=== PATIENT | male | born 1955 | race Caucasian/White ===

== ENCOUNTER 2023-04-30 08:57 | Outpatient (OUT) | payer OTHER, SELFPAY ==
[2023-04-30 09:28] LABS: Basophils Absolute Auto 0.1 10^3/uL (0.0-0.1); Basophils Percent Auto 0.7 % (0.2-2.0); Eosinophils Absolute Auto 0.1 10^3/uL (0.0-0.7); Eosinophils Percent Auto 1.2 % (0.9-7.0); Hematocrit 47.3 % (42.0-54.0); Hemoglobin 15.5 g/dL (14.0-18.0); Immature Granulocytes Abs Auto 0.03 10^3/uL (0.00-0.03); Immature Granulocytes Pct Auto 0.4 % (0.0-0.5); Lymphocytes Absolute Auto 2.6 10^3/uL (1.2-3.8); Lymphocytes Percent Auto 34.1 % (20.5-60.0); Mean Corpuscular HGB Conc 32.8 g/dL (29.9-35.2); Mean Corpuscular Hemoglobin 31.5 pg (25.9-34.0); Mean Corpuscular Volume 96.1 fL (80.0-94.0); Mean Platelet Volume 9.2 fL (9.5-13.5); Monocytes Absolute Auto 0.7 10^3/uL (0.3-0.8); Monocytes Percent Auto 9.4 % (1.7-12.0); Neutrophils Absolute Auto 4.1 10^3/uL (1.4-6.5); Neutrophils Percent Auto 54.2 % (43.0-75.0); Platelet Count 344 10^3/uL (150-450); Red Blood Count 4.92 10^6/uL (4.70-6.10); Red Cell Distribution Width 12.8 % (11.0-15.0); White Blood Count 7.5 10^3/uL (4.0-11.0)
[2023-04-30 09:45] LABS: Estimated Average Glucose 166 mg/dL; Glycohemoglobin A1C 7.4 % (4.5-6.2)
[2023-04-30 09:56] LABS: Alanine Aminotransferase 22 U/L (16-63); Albumin Globulin Ratio 1.1; Albumin Level 4.2 g/dL (3.4-5.0); Alkaline Phosphatase 78 U/L (46-116); Anion Gap 9.5; Aspartate Amino Transferase 13 U/L (15-37); BUN Creatinine Ratio 14.1; Bilirubin Direct 0.1 mg/dL (0.0-0.2); Bilirubin Total 0.4 mg/dL (0.2-1.0); Calcium 9.6 mg/dL (8.5-10.1); Carbon Dioxide 32.7 mmol/L (21.0-32.0); Chloride 95 mmol/L (98-107); Cholesterol 160 mg/dL (<=200); Estimated GFR (African America >60 (>=60); Estimated GFR (Non-African Ame >60 (>=60); Globulin 3.9 g/dL; Glucose 172 mg/dL (74-106); HDL Cholesterol 54 mg/dL (40-60); Potassium 4.2 mmol/L (3.5-5.1); Sodium 133 mmol/L (136-145); Thyroid Stimulating Hormone 1.068 uIU/mL (0.358-3.740); Total Protein 8.1 g/dL (6.4-8.2); Triglycerides 125 mg/dL (<=150)
[2023-04-30 10:19] LABS: Prostate Specific Antigen Scrn 0.62 ng/mL (<=4.00)
== END 2023-04-30 08:58 | disposition home or self-care (01) ==
LOC: LAB 09:04
PROVIDERS: PCP Family Medicine; Visit Provider Family Medicine
DX: E11.65 Type 2 diabetes mellitus with hyperglycemia (principal); I10 Essential (primary) hypertension; E55.9 Vitamin D deficiency, unspecified; Z79.899 Other long term (current) drug therapy; E78.5 Hyperlipidemia, unspecified; Z12.5 Encounter for screening for malignant neoplasm of prostate; E66.9 Obesity, unspecified
CPT/HCPCS: 36415; 80048; 80061; 80076; 82043; 82306; 83036; 84443; 85025; G0103

== ENCOUNTER 2023-09-23 09:35 | Outpatient (OUT) | payer OTHER, SELFPAY ==
[2023-09-23 10:31] LABS: Estimated Average Glucose 177 mg/dL; Glycohemoglobin A1C 7.8 % (4.5-6.2)
== END 2023-09-23 09:36 | disposition home or self-care (01) ==
LOC: LAB 09:36
PROVIDERS: PCP Family Medicine; Visit Provider Family Medicine
DX: E11.65 Type 2 diabetes mellitus with hyperglycemia (principal)
CPT/HCPCS: 36415; 83036

== ENCOUNTER 2024-01-07 13:42 | Outpatient (OUT) | payer OTHER, SELFPAY | END 2024-01-07 13:43 | disposition home or self-care (01) | LOC: PST 13:42 | PROVIDERS: PCP Family Medicine; Visit Provider Surgery | DX: Z01.818 Encounter for other preprocedural examination (principal); Z12.11 Encounter for screening for malignant neoplasm of colon ==

== ENCOUNTER 2024-01-12 07:36 | Day surgery (SDC) | payer OTHER, SELFPAY ==
[2024-01-12 07:40] VITALS: BP 143/108; PULSE 107; TEMP 36.3; O2SAT 97; BMI 26.9
--- OUTSIDE RECORDS SUMMARY | 2024-01-12 07:40 | XMS_ITS | CCD ---
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 Phone MARIUM, DR MARIELA Chaudhari Primary Care Unavailable KATIE, DR ELY Henley Admitting Unavailabl e REINECK, DR ELY Henley Attending Unavailabl e REINECK, DR ELY Henley Consulting Unavailabl e FILIPPONE, EDISON Consulting Unavailable Garcia, Majo Consulting Unavailable MARIUM, DR MARIELA Chaudhari Admitting Unavailable NADISAIAS, DR MARIELA Chaudhari Attending Unavailable MARIUM, DR MARIELA Chaudhari Primary Care Unavailable NADISAIAS, DR MARIELA Chaudhari Consulting Unavailable MARIUM, DR MARIELA Chaudhari Primary Care Unavailable MIKA, DR HORN Admitting Unavailable HAY, DR HORN Attending Unavailable EDIN, DR JALEESA Ramos Consulting Unavailable MICHELLE ERWIN Consulting Unavailable Julito MOISE Attending Unavailable LAURI, SHIRA Garzon Attending Unavailab sandeep CAUSEY, MARIELA Attending Unavailable SAI, JEWELS Attending Unavailable Allergies Allergy Classification Reported Allergen(s) Allergy Type Date of Onset Reaction(s) Facility (2 sources) Codeine; Translations: [codeine] Drug Allergy 08-16-2015 [facility] Repository (2 sources) Penicillins; Translations: [penicillins] Drug allergy (disorder) 08-16-2015 [facility] Problems Problem Classification Problem Date Documented Da te Episodic/Chronic Abdominal pain (4 sources) Unspecified abdominal pain; Translations: [UNSPECIFIED ABDOMINAL PAIN] Onset: 06-19-2022 Episodic Calculus of urinary tract (1 source) Personal history of urinary calculi; Translations: [PERSONAL HISTORY OF URINARY CALCULI] Onset: 06-23-2022 Episodic Diabetes mellitus with complications (4 sources) Type 2 diabetes mellitus with hyperglycemia; Translations: [TYPE 2 DM W/HYPERGLYCEMIA] Onset: 12-24-2021 Chronic Other aftercare (1 source) Other dedicated intermodal truck driver (current) drug therapy; Translations: [OTH FCI CURRENT DRUG THERAPY] Onset: 07-01-2022 Episodic Other aftercare (1 source) termite exterminator helper (current) use of aspirin; Translations: [LOSS CONTROL CONSULTANT CURRENT USE OF ASPIRIN] Onset: 07-01-2022 Episodic Other aftercare (1 source) termite exterminator helper (current) use of oral hypoglycemic drugs; Translations: [LOSS CONTROL CONSULTANT USE ORAL HYPOGLYCEMIC DX] Onset: 07-01-2022 Episodic Other non-traumatic joint disorders (3 sources) Pain in left hip; Translations: [PAIN IN LEFT HIP] Onset: 06-29-2022 Episodic Skin and subcutaneous tissue infections (1 source) Cutaneous abscess of left lower limb; Translations: [CUTANEOUS ABSCESS LEFT LOWER LIMB] Onset: 07-01-2022 Episodic Substance-related disorders (1 source) Nicotine dependence, cigarettes, uncomplicated; Translations: [NICOTINE DEPEND CIGARETTES UNCOMP] Onset: 07-01-2022 Chronic Urinary tract infections (1 source) Urinary tract infection, site not specified; Translations: [UTI SITE NOT SPECIFIED] Onset: 06-23-2022 Episodic Results Test Name Value Interpretation Reference Range Facility CBC AUTO DIFFon 06-29-2022 BASO # 0.1 103/ul Normal 0.0-0.1 [facility] Comment on above: Performed By: #### C BC #### [facility] [address] [place] [address] Dr. Scarlet Palmer Basophils/100 WBC (Bld) 0.3 % Normal 0.2-2.0 [facility] Comment on above: Performed By: #### C BC #### [facility] [address] [place] [address] Dr. Scarlet Palmer EO # 0.1 103/ul Normal 0.0-0.7 [facility] Comment on above: Performed By: #### C BC #### [facility] [address] [place] [address] Dr. Scarlet Palmer Eosinophils/100 WBC (Bld) 0.4 % Critically low 0.9-7.0 [facility] Comment on above: Performed By: #### C BC #### [facility] [address] [place] [address] Dr. Scarlet Palmer Erythrocyte distribution width (RBC) [Ratio] 13.2 % Normal 11.0-15.0 [facility] Comment on above: Performed By: #### C BC #### [facility] [address] [address] [address] Scarlet Palmer Hematocrit (Bld) [Volume fraction] 39.4 % Critically low 42.0-54.0 [facility] Comment on above: Performed By: #### C BC #### [facility] [address] [address] [address] Scarlet Palmer Hemoglobin (Bld) [Mass/Vol] 13.2 g/dL Critically low 14.0-18.0 [facility] Comment on above: Performed By: #### C BC #### [facility] [address] [place] [address] Dr. Scarlet Palmer IG # 0.16 10e3/ul Critically high 0.00-0.03 [facility] Comment on above: Performed By: #### C BC #### [facility] [address] [place] [address] Dr. Scarlet Palmer IG % 1.1 % Critically high 0.0-0.5 [facility] Comment on above: Performed By: #### C BC #### [facility] [address] [place] [address] Dr. Scarlet Palmer LYMPH # 2.7 103/ul Normal 1.2-3.8 [facility] Comment on above: Performed By: #### C BC #### [facility] [address] [place] [address] Dr. Scarlet Palmer Lymphocytes/100 WBC (Bld) 18.2 % Critically low 20.5-60.0 [facility] Comment on above: Performed By: #### C BC #### [facility] [address] [place] [address] Dr. Scarlet Palmer MANUAL DIFF REQ NO Normal [facility] Comment on above: Performed By: #### C BC #### [facility] [address] [place] [address] Dr. Scarlet Palmer MCH (RBC) [Entitic mass] 31.4 pg Normal 25.9-34.0 [facility] Comment on above: Performed By: #### C BC #### [facility] [address] [address] [address] Scarlet Palmer MCHC (RBC) [Mass/Vol] 33.5 g/dL Normal 29.9-35.2 [facility] Comment on above: Performed By: #### C BC #### [facility] [address] [address] [address] Scarlet Palmer MCV (RBC) [Entitic vol] 93.6 fL Normal 80.0-94.0 [facility] Comment on above: Performed By: #### C BC #### [facility] [address] [address] [address] Scarlet Palmer MONO # 1.3 103/ul Critically high 0.3-0.8 [facility] Comment on above: Performed By: #### C BC #### [facility] [address] [place] [address] Dr. Scarlet Palmer Monocytes/100 WBC (Bld) 8.7 % Normal 1.7-12.0 [facility] Comment on above: Performed By: #### C BC #### [facility] [address] [place] [address] Dr. Scarlet Palmer NEUT # 10.7 103/ul Critically high 1.4-6.5 [facility] Comment on above: Performed By: #### C BC #### [facility] [address] [place] [address] Dr. Scarlet Palmer Neutrophils/100 WBC (Bld) 71.3 % Normal 43.0-75.0 [facility] Comment on above: Performed By: #### C BC #### [facility] [address] [place], [place] [id number] Dr. Scarlet Palmer Platelet mean volume (Bld) [Entitic vol] 9.6 fL Normal 9.5-13.5 [facility] Comment on above: Performed By: #### C BC #### [facility] [address] [place] [address] Dr. Scarlet Palmer PLT 719 103/ul Critically high 150-450 [facility] Comment on above: Performed By: #### C BC #### [facility] [address] [place], [place] [address] Dr. Scarlet Palmer RBC 4.21 106/ul Critically low 4.70-6.10 [facility] Comment on above: Performed By: #### C BC #### [facility] [address] [place], [place] [address] Dr. Scarlet Palmer WBC 15.0 103/ul Critically high 4.0-11.0 [facility] Comment on above: Performed By: #### C BC #### [facility] [address] [place], [place] [address] Dr. Scarlet Palmer CTA ABD CHULA WWO CON LE RUNO FFon 06-29-2022 CTA ABD CHULA WWO CON LE RUNOFF EXAMINATION: CTA ABD CHULA WWO CON LE RUNOFF , 06/29/2022 HISTORY: Pain in lower limb COMPARISON: CT scan of the abdomen and pelvis without contrast from 07/07/2022 TECHNIQUE: CT scan of the abdomen, pelvis and bilateral lower extremities performed following 100 mL of Omnipaque 350 intravenous iodine contrast with arterial protocol. Coronal, sagittal and 3-D constructions were performed. MIP (maximum intensity projection) images were performed. Dose reduction techniques were achieved by using automated exposure control and/or adjustment of mA and/or kV according to patient size and/or use of iterative reconstruction technique. FINDINGS: Vascular: The abdominal aorta shows mild to moderate diffuse atherosclerosis with ulcerated plaques in the distal segment and involving the bifurcation. Ulcerated plaques are seen in bilateral common iliac arteries, left more than right, with mild stranding on the left side. Bilateral external iliac arteries are patent without significant narrowing. Bilateral internal iliac arteries are patent with mild proximal stenosis. Mild enlargement of the para-aortic lymph nodes with enhancement. The celiac axis is patent without narrowing and contrast within the splenic artery, proper hepatic artery and the left gastric artery. The superior mesenteric artery is patent without narrowing. Replaced right hepatic artery arising from the proximal superior mesenteric artery. Inferior mesenteric artery is patent without narrowing. Bilateral renal arteries are patent with mild calcific plaques at the origin without narrowing. In the right lower extremity, the common femoral artery, profunda femoris artery and superficial femoral artery are patent without significant stenosis. Mild atherosclerosis in the distal right superficial femoral artery. Patent right popliteal artery and trifurcation. Distal tibial evaluation limited due to inadequate opacification. In the left lower extremity, the common femoral artery, profunda femoris artery and superficial femoral artery are patent. Mild narrowing of the distal left superficial femoral artery. Patent left popliteal artery and trifurcation with three-vessel tibial runoff. Nonvascular: Fluid collection with air lucencies is seen in the left iliopsoas region extending from the level of the upper acetabulum to the lesser trochanter. This measures approximately 15.5 cm in length and 4.5 x 5 cm in transverse dimensions. These findings are consistent with acute abscess. Enhancing small lymph nodes are seen along the left para-aortic, iliac and inguinal region. The liver shows mild steatosis without obvious focal lesion. Mild hepatomegaly measuring 23.5 cm in the superior-inferior dimension. The spleen, pancreas, gallbladder, bile ducts and bilateral adrenal glands are unremarkable. Multiple bilateral renal cortical cysts, the largest in the left kidney measuring 2.5 cm in size. No hydronephrosis or hydroureter. Urinary bladder is nondistended. Prostate gland is not enlarged. Unremarkable IVC. Sigmoid and left colonic diverticulosis without diverticulitis. Moderate stool in the colon. No bowel loop dilatation or bowel wall thickening. Unremarkable appendix. No free fluid in the peritoneal cavity. Scans through both lower extremities demonstrate no obvious knee joint effusion. No fluid in the popliteal fossa and the calf region. No focal aggressive bone lesion. IMPRESSION: 1. Mild to moderate atherosclerosis of the distal abdominal aorta and bifurcation with ulcerated plaques, left more than right. Differential diagnosis includes vasculitis. 2. Mild stranding along the left common iliac artery with enhancing lymph nodes along the left para-aortic, iliac and inguinal region. 3. Fluid collection in the distal left iliopsoas region with air bubbles, consistent with abscess formation. 4. Patent left femoropopliteal arterial system with three-vessel tibial runoff, without significant narrowing. 5. Patent right femoropopliteal arterial system. Patent proximal tibial arteries in the right calf, limited distally evaluation due to lack of full opacification. Recommend clinical correlation. 6. Mild hepatomegaly. 7. Sigmoid and left colonic diverticulosis without diverticulitis. Findings were discussed with Dr. Юлия Carpenter at 11:49 am on 06/29/2022. Electronically authenticated by: MAJO GARCIA Date: 2022-06-29 11:50 Normal [facility] ER URINE PROFILEon 3 Bilirubin Ql (U) MODERATE Abnormal NEGATIVE [facility] Comment on above: Performed By: #### U RCX #### [facility] [address] [address] [address] Scarlet Palmer Clarity (U) SL CLOUDY Abnormal CLEAR [facility] Comment on above: Performed By: #### U RCX #### [facility] [address] [place] [address] Dr. Scarlet Palmer Color (U) DK. ORANGE Abnormal YELLOW [facility] Comment on above: Performed By: #### U RCX #### [facility] [address] [address] [address] Scarlet Palmer ERUAHCherry A micrscopic examination will be performed if indicated. Normal [facility] Comment on above: Performed By: #### U RCX #### [facility] [address] [place] [address] Dr. Scarlet Palmer Glucose Ql (U) Negative Normal NEGATIVE [facility] Comment on above: Performed By: #### U RCX #### [facility] [address] [place] [address] Dr. Scarlet Palmer Hemoglobin Ql (U) TRACE-INTACT Abnormal NEGATIVE [facility] Comment on above: Performed By: #### U RCX #### [facility] [address] [place] [address] Dr. Scarlet Palmer Ketones Ql (U) TRACE Abnormal NEGATIVE [facility] Comment on above: Performed By: #### U RCX #### [facility] [address] [place] [address] Dr. Scarlet Palmer LEUKOCYTES Negative Normal NEGATIVE [facility] Comment on above: Performed By: #### U RCX #### [facility] [address] [address] [address] Scarlet Palmer Nitrite Ql (U) Negative Normal NEGATIVE [facility] Comment on above: Performed By: #### U RCX #### [facility] [address] [place] [address] Dr. Scarlet Palmer pH (U) 5.5 [pH] Normal 5-9 [facility] Comment on above: Performed By: #### U RCX #### [facility] [address] [place] [address] Dr. Scarlet Palmer Protein (U) [Mass/Vol] 100 mg/dL Abnormal NEGATIVE/ TRACE [facility] Comment on above: Performed By: #### U RCX #### [facility] [address] [place] [address] Dr. Scarlet Palmer SPEC GRAVITY 1.030 Abnormal 1.005-<=1.025 [facility] Comment on above: Performed By: #### U RCX #### [facility] [address] [place] [address] Dr. Scarlet Palmer UR MICRO IND INDICATED Normal [facility] Comment on above: Performed By: #### U RCX #### [facility] [address] [place] [address] Dr. Scarlet Palmer Urobilinogen Qn (U) 1.0 {Lorenzo'U}/dL Normal 0.2 - 1. 0 [facility] Comment on above: Performed By: #### U RCX #### [facility] [address] [place] [address] Dr. Scarlet Palmer PROF CHEM 8 (BAS METB)on Anion gap [Moles/Vol] 10.4 mmol/L Normal [facility] Comment on above: Performed By: #### B MP #### [facility] [address] [place] [address] Dr. Scarlet Palmer Calcium [Mass/Vol] 9.1 mg/dL Normal 8.5-10.1 [facility] Comment on above: Performed By: #### B MP #### [facility] [address] [place] [address] Dr. Scarlet Palmer Chloride [Moles/Vol] 97 mmol/L Critically low 98-107 [facility] Comment on above: Performed By: #### B MP #### [facility] [address] [place] [address] Dr. Scarlet Palmer CO2 [Moles/Vol] 31.2 mmol/L Normal 21.0-32.0 [facility] Comment on above: Performed By: #### B MP #### [facility] [address] [address] [address] Scarlet Palmer Creatinine [Mass/Vol] 0.79 mg/dL Normal 0.70-1.30 [facility] Comment on above: Performed By: #### B MP #### [facility] [address] [address] [address] Scarlet Palmer EGFR-AF GRENADIAN >60 Normal >=60 [facility] Comment on above: Performed By: #### B MP #### [facility] [address] [address] [address] Scarlet Palmer EGFR-NON AF GRENADIAN >60 Normal >=60 [facility] Comment on above: Performed By: #### B MP #### [facility] [address] [address] [address] Scarlet Palmer Glucose [Mass/Vol] 225 mg/dL Critically high 74-106 [facility] Comment on above: Performed By: #### B MP #### [facility] [address] [place] [address] Dr. Scarlet Palmer Potassium [Moles/Vol] 3.6 mmol/L Normal 3.5-5.1 [facility] Comment on above: Performed By: #### B MP #### [facility] [address] [place] [address] Dr. Scarlet Palmer Sodium [Moles/Vol] 135 mmol/L Critically low 136-145 [facility] Comment on above: Performed By: #### B MP #### [facility] [address] [place] [address] Dr. Scarlet Palmer Urea nitrogen [Mass/Vol] 8.0 mg/dL Normal 7.0-18.0 [facility] Comment on above: Performed By: #### B MP #### [facility] [address] [place] [address] Dr. Scarlet Palmer Urea nitrogen/Creatinine [Mass ratio] 10.1 mg/mg Normal [facility] Comment on above: Performed By: #### B MP #### [facility] [address] [address] [address] Scarlet Palmer URINE MICROSCOPIC ONLYon BACTERIA NONE SEEN Normal NONE SEEN [facility] Comment on above: Performed By: #### U RCX #### [facility] [address] [place] [address] Dr. Scarlet Palmer Bacteria identified Cx Nom (U) NOT INDICATED Normal [facility] Comment on above: Performed By: #### U RCX #### [facility] [address] [place] [address] Dr. Scarlet Palmer CAST SEEN Abnormal NONE SEEN [facility] Comment on above: Performed By: #### U RCX #### [facility] [address] [place] [address] Dr. Scarlet Palmer Crystals LM Nom (Urine sed) NONE SEEN Normal NONE SEEN [facility] Comment on above: Performed By: #### U RCX #### [facility] [address] [place] [address] Dr. Scarlet Palmer Epithelial cells LM Ql (Urine sed) NONE SEEN Normal NONE SEEN /RARE [facility] Comment on above: Performed By: #### U RCX #### [facility] [address] [place] [address] Dr. Scarlet Palmer MUCOUS MODERATE Abnormal NONE SEEN [facility] Comment on above: Performed By: #### U RCX #### [facility] [address] [place] [address] Dr. Scarlet Palmer RBC NONE SEEN Abnormal 0-2 [facility] Comment on above: Performed By: #### U RCX #### [facility] [address] [place] [address] Dr. Scarlet Palmer WBC NONE SEEN Normal NONE SEEN [facility] Comment on above: Performed By: #### U RCX #### [facility] [address] [place] [address] Dr. Scarlet Palmer XR HIP LT 2 3V W PELVISon XR HIP LT 2 3V W PELVIS EXAM: XR HIP LT 2 3V W PELVIS HISTORY: Pain COMPARISON: None FINDINGS: There are mild to moderate degenerative changes with joint space narrowing, subchondral sclerosis and osteophyte formation. There is no evidence of an acute fracture, subluxation or bony destruction. IMPRESSION: Mild to moderate degenerative joint disease. Electronically authenticated by: EDISON MONTANO Date: 2022-06-29 10:00 Normal [facility] CBC W MANUAL DIFFon 06-19-19 23 ATYPICAL LYMPH # Normal [facility] Comment on above: Performed By: #### C BRYCE #### [facility] [address] [place] [address] Dr. Scarlet Palmer ATYPICAL LYMPH % Normal [facility] Comment on above: Performed By: #### C BRYCE #### [facility] [address] [place] [address] Dr. Scarlet Palmer BAND # Normal 0.0-0.3 [facility] Comment on above: Performed By: #### C BRYCE #### [facility] [address] [place] [address] Dr. Scarlet Palmer BAND % Normal 0-5 [facility] Comment on above: Performed By: #### C BRYCE #### [facility] [address] [place] [address] Dr. Scarlet Palmer BASOM # 0.00 103/ul Normal 0.00-0.10 [facility] Comment on above: Performed By: #### C BRYEC #### [facility] [address] [place] [address] Dr. Scarlet Palmer BASOM % 0.0 % Critically low 0.2-2.0 [facility] Comment on above: Performed By: #### C BRYCE #### [facility] [address] [place] [address] Dr. Scarlet Palmer BLAST # Normal [facility] Comment on above: Performed By: #### C BRYCE #### [facility] [address] [place] [address] Dr. Scarlet Palmer BLAST % Normal [facility] Comment on above: Performed By: #### C BRYCE #### [facility] [address] [place] [address] Dr. Scarlet Palmer CORRECTED WBC Normal 4.0-11.0 [facility] Comment on above: Performed By: #### C BCMOSES #### [facility] [address] [address] [address] Scarlet Palmer EOS # 0.00 103/ul Normal 0.00-0.70 [facility] Comment on above: Performed By: #### C BRYCE #### [facility] [address] [address] [address] Scarlet Palmer EOS% 0.0 % Critically low 0.9-7.0 [facility] Comment on above: Performed By: #### C BCMOSES #### [facility] [address] [address] [address] Scarlet Palmer HCT 33.3 % Critically low 42.0-54.0 [facility] Comment on above: Performed By: #### C BRYCE #### [facility] [address] [address] [address] Scarlet Palmer HGB 11.1 g/dl Critically low 14.0-18.0 [facility] Comment on above: Performed By: #### C BRYCE #### [facility] [address] [address] [address] Scarlet Palmer LYMPHM # 0.52 103/ul Critically low 1.20-3.80 [facility] Comment on above: Performed By: #### C BRYCE #### [facility] [address] [address] [address] Scarlet Palmer LYMPHM% 12.0 % Critically low 20.5-60.0 [facility] Comment on above: Performed By: #### C BRYCE #### [facility] [address] [address] [address] Scarlet Palmer MCH 30.4 pg Normal 25.9-34.0 [facility] Comment on above: Performed By: #### C BRYCE #### [facility] [address] [address] [address] Scarlet Palmer MCHC 33.3 g/dl Normal 29.9-35.2 [facility] Comment on above: Performed By: #### C BRYCE #### [facility] [address] [address] [address] Scarlet Palmer MCV 91.2 fL Normal 80.0-94.0 [facility] Comment on above: Performed By: #### C BCMAN #### [facility] [address] [place] [address] Dr. Scarlet Palmer METAMYELOCYTE # Normal [facility] Comment on above: Performed By: #### C BCMAN #### [facility] [address] [place] [address] Dr. Scarlet Palmer METAMYELOCYTE % Normal [facility] Comment on above: Performed By: #### C BCMAN #### [facility] [address] [place] [address] Dr. Scarlet Palmer MONOM# 0.60 103/ul Normal 0.30-0.80 [facility] Comment on above: Performed By: #### C BCMAN #### [facility] [address] [place] [address] Dr. Scarlet Palmer MONOM% 14.0 % Critically high 1.7-12.0 [facility] Comment on above: Performed By: #### C BCMOSES #### [facility] [address] [place] [address] Dr. Scarlet Palmer MPV 10.3 fL Normal 9.5-13.5 [facility] Comment on above: Performed By: #### C BCMAN #### [facility] [address] [place] [address] Dr. Scarlet Palmer MYELOCYTE # Normal [facility] Comment on above: Performed By: #### C BCMAN #### [facility] [address] [place] [address] Dr. Scarlet Palmer MYELOCYTE % Normal [facility] Comment on above: Performed By: #### C BCMAN #### [facility] [address] [place] [address] Dr. Scarlet Palmer NRBC Normal [facility] Comment on above: Performed By: #### C BCMAN #### [facility] [address] [place] [address] Dr. Scarlet Palmer PLT 141 103/ul Critically low 150-450 [facility] Comment on above: Performed By: #### C BCMAN #### [facility] [address] [address] [address] Scarlet Palmer RBC 3.65 106/ul Critically low 4.70-6.10 [facility] Comment on above: Performed By: #### C BCMAN #### [facility] [address] [address] [address] Scarlet Palmer RDW 13.4 % Normal 11.0-15.0 [facility] Comment on above: Performed By: #### C BCMAN #### [facility] [address] [address] [address] Scarlet Palmer SEG # 3.18 103/ul Normal 1.40-6.50 [facility] Comment on above: Performed By: #### C BCMAN #### [facility] [address] [address] [address] Scarlet Palmer SEG % 74.0 % Normal 43.0-75.0 [facility] Comment on above: Performed By: #### C BCMAN #### [facility] [id number] Scarlet Palmer WBC 4.3 103/ul Normal 4.0-11.0 [facility] Comment on above: Performed By: #### C BCMOSES #### [facility] [address] ABD/PELVIS WO CONon 06-19 CT ABD/PELVIS WO CON EXAMINATION: CT ABD/PELVIS WO CON, 06/19/2022 2:09 PM EST HISTORY: CALCULUS OF KIDNEY COMPARISON: None. TECHNIQUE: CT scan of the abdomen and pelvis was performed without IV contrast. CT dose reduction technique was used, including Automated Exposure Control. FINDINGS: LUNG BASES: Mild dependent opacities likely atelectasis LIVER: No enlargement, atrophy, abnormal density, or significant focal lesion. BILIARY: No dilatation or calcification. PANCREAS: No lesion, fluid collection, ductal dilatation, or atrophy. SPLEEN: No enlargement or focal lesion. ADRENALS: No mass or enlargement. KIDNEYS: Bilateral renal cortical hypodensities likely representing cysts. No hydronephrosis or obstructing nephrolithiasis BOWEL/MESENTERY: Moderate colonic diverticulosis without evidence of acute diverticulitis. Nonobstructive bowel gas pattern. Normal appendix. AORTA/VASCULAR: No aortic aneurysm. Moderate atherosclerosis. There are inflammatory changes with ill-defined wall and some mild mesenteric stranding surrounding the distal aorta and left common iliac artery RETROPERITONEUM: No mass or adenopathy. LYMPH NODES: No adenopathy. URINARY BLADDER: Ill-defined heterogeneous appearance of the bladder with the lumen inseparable from the level PELVIC ORGANS: The prostate size is normal. Moderate calcifications ABDOMINAL WALL: No mass or hernia. BONES: No bony lesion or fracture. OTHER: Negative. IMPRESSION: No obstructive uropathy Inflammatory changes of the distal left common iliac artery, consider arteritis. CT angiogram might be helpful to evaluate acute aortic injury Heterogeneous ill-defined appearance of the urinary bladder wall Electronically authenticated by: JALEESA JESUS Date: 2022-06-19 16:15 Normal [facility] CULTURE URINEon 06-19-2022 CULTURE URINE Culture Observations : NO GROWTH. Normal [facility] Comment on above: Performed By: #### U RCX #### [facility] [address] [place] [address] Dr. Scarlet Palmer ER URINE PROFILEon 3 Bilirubin Ql (U) MODERATE Abnormal NEGATIVE [facility] Comment on above: Performed By: #### U MICRO, ERUR #### [facility] [address] [place] [address] Dr. Scarlet Palmer Clarity (U) CLEAR Normal CLEAR [facility] Comment on above: Performed By: #### U MICRO, ERUR #### [facility] [address] [place] [address] Dr. Scarlet Palmer Color (U) DK. ORANGE Abnormal YELLOW [facility] Comment on above: Performed By: #### U MICRO, ERUR #### [facility] [address] [place] [address] Dr. Scarlet Palmer ERUAHD A micrscopic examination will be performed if indicated. Normal [facility] Comment on above: Performed By: #### U MICRO, ERUR #### [facility] [address] [place] [address] Dr. Scarlet Palmer Glucose Ql (U) 100 mg/dl Abnormal NEGATIVE [facility] Comment on above: Performed By: #### U MICRO, ERUR #### [facility] [address] [address] [address] Scarlet Palmer Hemoglobin Ql (U) Negative Normal NEGATIVE [facility] Comment on above: Performed By: #### U MICRO, ERUR #### [facility] [address] [address] [address] Scarlet Palmer Ketones Ql (U) 15 mg/dl Abnormal NEGATIVE [facility] Comment on above: Performed By: #### U MICRO, ERUR #### [facility] [address] [place] [address] Dr. Scarlet Palmer LEUKOCYTES TRACE Abnormal NEGATIVE [facility] Comment on above: Performed By: #### U MICRO, ERUR #### [facility] [address] [place] [address] Dr. Scarlet Palmer Nitrite Ql (U) Negative Normal NEGATIVE [facility] Comment on above: Performed By: #### U MICRO, ERUR #### [facility] [address] [place] [address] Dr. Scarlet Palmer pH (U) 6.0 [pH] Normal 5-9 [facility] Comment on above: Performed By: #### U MICRO, ERUR #### [facility] [address] [place] [address] Dr. Scarlet Palmer Protein (U) [Mass/Vol] 300 mg/dL Abnormal NEGATIVE/ TRACE [facility] Comment on above: Performed By: #### U MICRO, ERUR #### [facility] [address] [place] [address] Dr. Scarlet Palmer SPEC GRAVITY 1.030 Abnormal 1.005-<=1.025 [facility] Comment on above: Performed By: #### U MICRO, ERUR #### [facility] [address] [place] [address] Dr. Scarlet Palmer UR MICRO IND INDICATED Normal [facility] Comment on above: Performed By: #### U MICRO, ERUR #### [facility] [address] [place] [address] Dr. Scarlet Palmer Urobilinogen Qn (U) 1.0 {Lorenzo'U}/dL Normal 0.2 - 1. 0 [facility] Comment on above: Performed By: #### U MICRO, ERUR #### [facility] [address] [place] [address] Dr. Scarlet Palmer LACTATE/LACTIC ACIDon 2022 Lactate [Moles/Vol] 1.0 mmol/L Normal 0.4-1.9 [facility] Comment on above: Performed By: #### L ACT #### [facility] [address] [place] [address] Dr. Scarlet Palmer PROF 14(COMP METB)on 023 Albumin [Mass/Vol] 3.9 g/dL Normal 3.4-5.0 [facility] Comment on above: Performed By: #### U RCX #### [facility] [address] [place] [address] Dr. Scarlet Palmer Albumin/Globulin [Mass ratio] 0.9 {ratio} Normal [facility] Comment on above: Performed By: #### U RCX #### [facility] [address] [place] [address] Dr. Scarlet Palmer ALP [Catalytic activity/Vol] 92 U/L Normal 46-116 [facility] Comment on above: Performed By: #### U RCX #### [facility] [address] [place] [address] Dr. Scarlet Palmer ALT [Catalytic activity/Vol] 18 U/L Normal 16-63 [facility] Comment on above: Performed By: #### U RCX #### [facility] [address] [place] [address] Dr. Scarlet Palmer Anion gap [Moles/Vol] 12.3 mmol/L Normal [facility] Comment on above: Performed By: #### U RCX #### [facility] [address] [place] [address] Dr. Scarlet Palmer AST [Catalytic activity/Vol] 18 U/L Normal 15-37 [facility] Comment on above: Performed By: #### U RCX #### [facility] [address] [address] [address] Scarlet Palmer Bilirubin [Mass/Vol] 0.7 mg/dL Normal 0.2-1.0 [facility] Comment on above: Performed By: #### U RCX #### [facility] [address] [place] [address] Dr. Scarlet Palmer Calcium [Mass/Vol] 10.1 mg/dL Normal 8.5-10.1 [facility] Comment on above: Performed By: #### U RCX #### [facility] [address] [place] [address] Dr. Scarlet Palmer Chloride [Moles/Vol] 99 mmol/L Normal 98-107 [facility] Comment on above: Performed By: #### U RCX #### [facility] [address] [place] [address] Dr. Scarlet Palmer CO2 [Moles/Vol] 29.7 mmol/L Normal 21.0-32.0 [facility] Comment on above: Performed By: #### U RCX #### [facility] [address] [place] [address] Dr. Scarlet Palmer Creatinine [Mass/Vol] 0.78 mg/dL Normal 0.70-1.30 [facility] Comment on above: Performed By: #### U RCX #### [facility] [address] [place] [address] Dr. Scarlet Palmer EGFR-AF GRENADIAN >60 Normal >=60 [facility] Comment on above: Performed By: #### U RCX #### [facility] [address] [place] [address] Dr. Scarlet Palmer EGFR-NON AF GRENADIAN >60 Normal >=60 [facility] Comment on above: Performed By: #### U RCX #### [facility] [address] [place] [address] Dr. Scarlet Palmer Globulin (S) [Mass/Vol] 4.5 g/dL Normal [facility] Comment on above: Performed By: #### U RCX #### [facility] [address] [address] [address] Scarlet Palmer Glucose [Mass/Vol] 207 mg/dL Critically high 74-106 [facility] Comment on above: Performed By: #### U RCX #### [facility] [address] [address] [address] Scarlet Palmer Potassium [Moles/Vol] 4.0 mmol/L Normal 3.5-5.1 [facility] Comment on above: Performed By: #### U RCX #### [facility] [address] [address] [address] Scarlet Palmer Protein [Mass/Vol] 8.4 g/dL Critically high 6.4-8.2 [facility] Comment on above: Performed By: #### U RCX #### [facility] [address] [place] [address] Dr. Scarlet Palmer Sodium [Moles/Vol] 137 mmol/L Normal 136-145 [facility] Comment on above: Performed By: #### U RCX #### [facility] [address] [place] [address] Dr. Scarlet Palmer Urea nitrogen [Mass/Vol] 14.0 mg/dL Normal 7.0-18.0 [facility] Comment on above: Performed By: #### U RCX #### [facility] [address] [place] [address] Dr. Scarlet Palmer Urea nitrogen/Creatinine [Mass ratio] 17.9 mg/mg Normal [facility] Comment on above: Performed By: #### U RCX #### [facility] [address] [place] [address] Dr. Scarlet Palmer URINE MICROSCOPIC ONLYon BACTERIA NONE SEEN Normal NONE SEEN [facility] Comment on above: Performed By: #### U MICRO, ERUR #### [facility] [address] [place] [address] Dr. Scarlet Palmer Bacteria identified Cx Nom (U) INDICATED Normal [facility] Comment on above: Performed By: #### U MICRO, ERUR #### [facility] [address] [place] [address] Dr. Scarlet Palmer CAST SEEN Abnormal NONE SEEN [facility] Comment on above: Performed By: #### U MICRO, ERUR #### [facility] [address] [place] [address] Dr. Scarlet Palmer Crystals LM Nom (Urine sed) NONE SEEN Normal NONE SEEN [facility] Comment on above: Performed By: #### U MICRO, ERUR #### [facility] [address] [place] [address] Dr. Scarlet Palmer Epithelial cells LM Ql (Urine sed) RARE Normal NONE SEEN /RARE [facility] Comment on above: Performed By: #### U MICRO, ERUR #### [facility] [address] [place] [address] Dr. Scarlet Palmer MUCOUS MODERATE Abnormal NONE SEEN [facility] Comment on above: Performed By: #### U MICRO, ERUR #### [facility] [address] [place] [address] Dr. Scarlet Palmer RBC 0-2 Normal 0-2 [facility] Comment on above: Performed By: #### U MICRO, ERUR #### [facility] [address] [place] [address] Dr. Scarlet Palmer WBC 5-10 Abnormal NONE SEEN [facility] Comment on above: Performed By: #### U MICRO, ERUR #### [facility] [address] [place] [address] Dr. Scarlet Palmer Provider Letteron 05-21-2022 Provider Letter May 21, 2022 LOLA LUIS [address] [place] [address] LOLA LUIS 1955 Dear Mr. Luis, We have been trying to reach you with no success. You have an appointment with Dr. Moise on 2022 which will need to be rescheduled since he will be out of the office that day. Please contact the office at the number listed below to get this appointment rescheduled at your earliest convenience. Thank you for your prompt attention to this matter. Sincerely, [facility] [address] [place] [address] x1 Normal [facility] GLYCOHEMOGLOBIN A1Con 2021 ADA RECOMMENDATION SEE BELOW Normal [facility] Comment on above: Result Comment: ADA RECOMMENDED LIMIT 4.0 - 6.0 ADA THERAPEUTIC TARGET < 7.0 ACTION SUGGESTED > 7.0 Performed By: #### A 1C #### [facility] [address] [address] [address] Scarlet Palmer Glucose [Mass/Vol] 169 mg/dL Normal [facility] Comment on above: Performed By: #### A 1C #### [facility] [address] [place], [place] [address] Dr. Scarlet Palmer HbA1c (Bld) [Mass fraction] 7.5 % Critically high 4.5-6.2 [facility] Comment on above: Performed By: #### A 1C #### [facility] [address] [address] [address] Scarlet Palmer Encounters Encounter Date Encounter Type Care Provider Facility Start: 11-30-2023 End: 11-30-2023 ambulatory JEWELS GIBBS Not Available Start: 09-02-2023 End: 09-02-2023 ambulatory MARIELA CAUSEY Not Available Start: 07-09-2022 End: 07-10-2022 ambulatory SHIRA CARREON Facility:[facility] Start: 06-29-2022 End: 06-29-[address] MARIELA CAUSEY Facility:[facility] Start: 06-19-2022 End: 06-19-[address] MARIELA CAUSEY Facility:[facility] Start: 03-17-2022 ambulatory Julito Paris ty:JEANNE Diaz Start: 12-24-2021 End: 12-25-[address] MARIELA CAUSEY Facility:[facility] Payers Date Payer Category Payer Medicare [id number] 2020 Unknown [id number] 1961 Medicare [id number] 1955 Unknown [id number] 2.16.84 [id number] 1955 Unknown [id number] 2.16.84 [id number] 1955 Unknown [id number] 2.16.84 [id number] 1955 Unknown [id number] 2.16.8 [id number] 1955 Unknown [id number] 2.16.8 [id number] 1955 Unknown [id number] 2.16.84 [id number] 1955 Unknown [id number] 2.16.84 [id number] Summary Purpose Family History No Family History Records FoundNo Family History Records FoundNo Family History Records Found Advance Directives No Advanced Directives Records FoundNo Advanced Directives Records FoundNo Advanced Directives Records Found Additional Source Comments (unrecognized sect ion and content) No Status Records FoundNo Status Records FoundNo Status Records Found INFORMATION SOURCE (unrecogn ized section and content) DATE CREATED AUTHOR 07/01/2022 Kriss Diaz [facility] DATE CREATED AUTHOR AUTHOR'S ORGANIZ ATION 07/10/2022 [facility] DATE CREATED AUTHOR AUTHOR'S ORGANIZ ATION 12/04/2023 [facility] FOR RECORDS PERTAINING TO PATIENTS WHO ARE OR HAVE BEEN ENROLLED IN A CHEMICAL DEPENDENCY/SUBSTANCEABUSE PROGRAM, SOME INFORMATION MAY BE OMITTED. This clinical summary was aggregated from multiple sources. Caution should be exercised in using it in the provision of clinical care. This summary normalizes information from multiple sources, and as a consequence, information in this document may materially change the coding, format and clinical context of patient data. In addition, data may be omitted in some cases. CLINICAL DECISIONS SHOULD BE BASED ON THE PRIMARY CLINICAL RECORDS. [employer] [facility]. provides no warranty or guarantee of the accuracy or completeness of information in this document.
[2024-01-12] MEDS: LACTATED RINGER'S SOLUTION 1,000 ML 50 ML IV (08:05)
[2024-01-12 08:08] LABS: Glucometer 165 mg/dL (74-106)
--- NOTE | 2024-01-12 08:21 | W.PM.PROCNOT ---
Date of procedure: 01/12/24 Pre-op diagnosis: + fit test Post-op diagnosis: other (cecal and sigmoid polypectomy) Procedure: Previous colonoscopy: never procedure: diagnostic colonoscopy with polypectomy removed via cold biopsy forceps x2 The patient was given IV conscious sedation.? The patient's SPO2 remained above 90% throughout the procedure. The colonoscope was inserted per rectum and advanced under direct vision to the cecum without difficulty.? The prep was good.? Findings: Terminal ileum os: normal Cecum/Ascending colon: small subcentimeter polyp removed via cold biopsy forceps approx at 105cm Transverse colon: normal Descending/Sigmoid colon: small subcentimeter polyp removed via cold biopsy forceps approx at 50cm Rectum/Anus: examined in normal and retroflexed positions and was normal Withdrawal Time was (minutes): 8* The colon was decompressed and the scope was removed.? The patient tolerated the procedure well. Recommendations/Plan: 1.? Lifestyle and dietary modifications as discussed 2.? F/U Biopsies 3.? F/U in 10 years pending biopsy results 4.? Discussed with the family Anesthesia: MAC Surgeon: Angel Cadet Estimated blood loss (mL): 3 Pathology: other (cecal and sigmoid polyps) Condition: stable Disposition: PACU
[2024-01-12 09:30] VITALS: BP 117/61; PULSE 78; O2SAT 99
[2024-01-12 09:45] VITALS: BP 123/74; PULSE 91; O2SAT 94
== END 2024-01-12 10:02 | disposition home or self-care (01) ==
PROVIDERS: PCP Family Medicine; Visit Provider Surgery
PROC: (CPT 00811; principal; 2024-01-12 08:45)
DX: R19.5 Other fecal abnormalities (principal); D12.3 Benign neoplasm of transverse colon; D12.5 Benign neoplasm of sigmoid colon; E11.9 Type 2 diabetes mellitus without complications; Z79.84 Long term (current) use of oral hypoglycemic drugs; E78.5 Hyperlipidemia, unspecified; I10 Essential (primary) hypertension
CPT/HCPCS: 00811; 45380; 36415; 82948; 88305; J2704